=== PATIENT | female | born 1950 | race Native Hawaiian/Other Pacific Islander ===

== ENCOUNTER 2024-08-25 20:36 | Observation (INO) | payer MEDICARE ==
[2024-08-25] MEDS ORDERED: PROVENTIL 2.5 MG/3 ML NEB IH ONE (20:50)
[2024-08-25] MEDS: PROVENTIL 2.5 MG/3 ML NEB IH ONE (20:55)
[2024-08-25] MEDS ORDERED: Sterile H2O 10 ml IJ ONE (21:04)
[2024-08-25] MEDS ORDERED: solu-MEDROL ONE (21:04)
[2024-08-25] MEDS: solu-MEDROL 125 MG, Sterile H2O 10 ml 2 ML IV ONE (21:08)
[2024-08-25 21:11] LABS: Absolute Neutrophil Ct (ANC) 4.84 x10^3/uL (1.56-6.13); BASOPHIL % 0.3 % (0.1-1.2); Basophil (Absolute #) 0.02 x10^3/uL (0.01-0.08); Eosinophil % 0.3 % (0.7-5.8); Eosinophil (Absolute #) 0.02 x10^3/uL (0.04-0.36); Hematocrit 35.4 % (34.1-44.9); Hemoglobin 11.3 g/dL (11.2-15.7); IMMATURE GRAN # 0.05 x10^3u/L (0.001-0.031); IMMATURE GRAN % 0.8 % (0.001-0.429); Lymphocyte (Absolute #) 0.89 x10^3/uL (1.18-3.74); Lymphocytes % 13.9 % (19.3-51.7); Mean Corpuscular Hgb Concent. 31.9 g/dL (32.2-35.5); Mean Platelet Volume 9.7 fL (9.4-12.3); Monocyte (Absolute #) 0.58 x10^3/uL (0.24-0.86); Monocytes % 9.1 % (4.7-12.5); Neutrophil % 75.6 % (34.0-71.1); Platelet Count 182 x10^3/uL (182-369); Red Blood Count 3.89 x10^6/uL (3.93-5.22); Red Cell Distribution Width 14.5 % (11.7-14.4); White Blood Count 6.4 x10^3/uL (3.98-10.04)
[2024-08-25 21:36] LABS: ALBUMIN 4.4 g/dL (3.5-5.0); ANION GAP 18.3 MEQ/L (5-15); BILIRUBIN,TOTAL 0.4 mg/dL (0.2-1.3); Calcium 7.8 mg/dL (8.4-10.2); Creatinine 1 0.89 mg/dL (0.52-1.04); Potassium 4.1 mmol/L (3.5-5.1); Total Protein 6.3 g/dL (6.3-8.2)
[2024-08-25 21:49] LABS: INFLUENZA A NEGATIVE (NEGATIVE); INFLUENZA B NEGATIVE (NEGATIVE); RESPIRATORY SYNCTIAL VIRUS NEGATIVE (NEGATIVE); SARS-CoV-2 Xpert Express NEGATIVE (NEGATIVE)
[2024-08-25] MEDS ORDERED: ROCEPHIN 2 GM/100 ML NACL 2 GM/100 ML IVPB IV ONE (22:56)
--- NOTE | 2024-08-25 22:56 | ERPHSYRPT ---
- History of Present Illness Time Seen by Provider: 08/25/24 20:50 Source: patient Exam Limitations: no limitations Patient Subjective Stated Complaint: pt states that she has end stage COPD. pt states that she began to be short of breath on saturday and has just gotten worse Triage Nursing Assessment: pt came into the er via wheelchair; pt is axo x4; c/o SOB; pt denies pain; pt is tripod position, purse lip breathing; respiratory distress present; pt wears 3L O2 at all times; lung sounds diminished throughout and expiratory wheezing posterior; skin PDW; tachycardic Physician History: 74-year-old female history of end-stage COPD on 3 L nasal cannula daily presents to our ED for evaluation of progressive shortness of breath since Saturday. Patient has been treating herself with nebulized albuterol with transient improvement. No fever. No nausea vomiting or diaphoresis. Patient denies chest pain. Symptoms are moderate in intensity. Symptoms worse with exertion. Patient voices no other complaints or concerns at this time. Portions of this note were created with voice recognition technology. There may be grammatical, spelling, punctuation or sound alike errors Timing/Duration: today Activities at Onset: activity Severity of Dyspnea-Max: severe Severity of Dyspnea-Current: moderate Possible Cause: occasional episodes Modifying Factors: Improves With: activity Associated Symptoms: cough Allergies/Adverse Reactions: ciprofloxacin Allergy (Verified 08/25/24 20:40) codeine Allergy (Verified 08/25/24 20:40) propoxyphene [From Darvon] Allergy (Verified 08/25/24 20:40) Home Medications: ARIPiprazole [Aripiprazole] 30 mg PO DAILY 08/25/24 [History] Albuterol Sulfate [Proair Respiclick] 2 puff IH Q6HPRN PRN 08/25/24 [History] Atorvastatin Calcium 40 mg PO HS 08/25/24 [History] Bisacodyl 10 mg [Dulcolax 10 MG SUPP] 10 mg RC DAILY PRN 08/25/24 [History] Calcium Carbonate/Vitamin D3 [Calcium 600 mg-Vit D3 10Mcg Tb] 1 each PO BID 08/25/24 [History] Famotidine 40 mg PO DAILY 08/25/24 [History] Fluticasone Furoate [Arnuity Ellipta] 1 puff IH DAILY 08/25/24 [History] Fluticasone Propionate [Flonase Allergy Relief] 1 spray NS DAILY 08/25/24 [History] Ipratropium/Albuterol Sulfate [Iprat-Albut 0.5-3(2.5) mg/3 ml] 3 ml IH Q6HPRN PRN 08/25/24 [History] Levothyroxine Sodium 300 mcg PO DAILY 08/25/24 [History] Montelukast Sodium 10 mg [Singulair 10 MG] 10 mg PO DAILY 08/25/24 [History] Morphine Sulfate 15 mg PO Q4HPRN PRN 08/25/24 [History] Morphine Sulfate Cr 15 mg [Ms Contin 15 MG] 15 mg PO HS 08/25/24 [History] Morphine Sulfate Cr 15 mg [Ms Contin 15 MG] 30 mg PO 0600 08/25/24 [History] Morphine Sulfate Cr 15 mg [Ms Contin 15 MG] 30 mg PO 1400 08/25/24 [History] Naloxone HCl [Narcan] 4 mg NS DAILY PRN 08/25/24 [History] Nitroglycerin 0.4 mg Tablet [Nitrostat 0.4 MG Tablet] 0.4 mg SL Q5MIN PRN MR X 3 PRN 08/25/24 [History] Omeprazole 40 mg PO BID 08/25/24 [History] Polyethylene Glycol 3350 17 gm [Miralax Powder 17GM PACKET] 17 gm PO DAILY 08/25/24 [History] Potassium Chloride 10 meq PO DAILY 08/25/24 [History] Prednisone 10 mg [Deltasone 10 mg] 10 mg PO DAILY 08/25/24 [History] Quetiapine Fumarate 25 mg [Seroquel 25 MG] 25 mg PO HS 08/25/24 [History] Roflumilast [Daliresp] 500 mcg PO DAILY 08/25/24 [History] Tiotropium Ridge Inhaler [Spiriva 18 Mcg/Cap Inhaler] 1 puff IH DAILY 08/25/24 [History] Hx Tetanus, Diphtheria Vaccination/Date Given: Yes Hx Influenza Vaccination/Date Given: Yes Hx Pneumococcal Vaccination/Date Given: Yes Travel Risk - International Travel Have you traveled outside of the country in past 3 weeks: No - Emerging Infectious Disease Are you exhibiting symptoms associated with any current EIDs: Yes Symptoms: Shortness of Breath - Review of Systems Constitutional: No Symptoms, No Fever, No Chills Eyes: No Symptoms Ears, Nose, & Throat: No Symptoms Respiratory: No Symptoms, No Cough, No Dyspnea Cardiac: No Symptoms, No Chest Pain, No Edema, No Syncope Abdominal/Gastrointestinal: No Symptoms, No Abdominal Pain, No Nausea, No Vomiting, No Diarrhea Genitourinary Symptoms: No Symptoms, No Dysuria Musculoskeletal: No Symptoms, No Back Pain, No Neck Pain Skin: No Symptoms, No Rash Neurological: No Symptoms, No Dizziness, No Focal Weakness, No Sensory Changes Psychological: No Symptoms Endocrine: No Symptoms Hematologic/Lymphatic: No Symptoms Immunological/Allergic: No Symptoms All Other Systems: Reviewed and Negative - Past Medical History Pertinent Past Medical History: Yes ENT History: Cataracts Cardiac History: Coronary Artery Disease, High Cholesterol, Myocardial Infarction (MA) Respiratory History: COPD Endocrine Medical History: Hypothyroidism Musculoskeletal History: No Pertinent History, Other GI Medical History: Diverticulosis, GERD, Gallbladder Disease, Other History: Renal Disease Psycho-Social History: Bipolar, Depression Female Reproductive Disorders: No Pertinent History Other Medical History: saab esophagus, ckc stage 3, opioid dependence, small intestional bacterial overgrowth (SIBO), essential tremor, hypomagnesemia, gastroparesis, nodule of kidney, chronic intestinal pseudo-obstruction, chronic pain, end stage COPD - Past Surgical History Past Surgical History: Yes Neuro Surgical History: No Pertinent History Cardiac: Cardiac Catheterization Respiratory: No Pertinent History Gastrointestinal: Cholecystectomy Genitourinary: Kidney Surgery Musculoskeletal: Orthopedic Surgery Female Surgical History: Tubal Ligation Other Surgical History: carpal tunnel surgery on both wrist, left knee surgery, sinus surgery, kidney surgery-stents - Social History Smoking Status: Former smoker Exposure to second hand smoke: No Drug Use: none - Social Determinants of Health Will the patient participate in the screening: Yes Do you worry about a steady place to live?: No Do you have any problems with any of the following?: No known problems In the past 12 months,have you had to go without utilities?: No Transportation Issues: No Has anyone in your support network made you feel unsafe?: No Have you or anyone in your house had to go w/o enough food: No - Nursing Vital Signs Nursing Vital Signs: Initial Vital Signs Pulse Rate 114 H 08/25/24 20:40 Respiratory Rate 24 08/25/24 20:40 Blood Pressure 137/72 08/25/24 20:40 O2 Sat by Pulse Oximetry 97 08/25/24 20:40 Pain Scale Pain Intensity 0 - Physical Exam General Appearance: no apparent distress, alert Eye Exam: PERRL/EOMI Ears, Nose, Throat Exam: hearing grossly normal, normal ENT inspection, normal pharynx Neck Exam: normal inspection, supple Respiratory Exam: diminished breath sounds, rhonchi, wheezing Cardiovascular/Chest Exam: normal heart sounds, regular rate/rhythm Abdominal/Gastrointestinal Exam: soft, No tenderness, No distention, No mass Extremity Exam: non-tender, normal range of motion, normal inspection, no calf tenderness, no pedal edema Neurologic Exam: alert, oriented x 3, cooperative, stack supervisor II-XII nml as tested, sensation nml, No motor deficits Skin Exam: normal color, warm, No dry Lymphatic Exam: No adenopathy SpO2 Interpretation: normal SpO2: 99 O2 Delivery: Room Air - Course Nursing assessment & vital signs reviewed: Yes EKG Interpreted by Me: RATE ([id number]), Sinus Rhythm, LAFB, NORMAL INTERVALS, NORMAL QRS - Radiology Exams Chest X-ray Interpretation: Interpreted by me (No acute findings) Ordered Tests: Active Orders 24 hr Category Date Time Status Dietary Aide Teacher STAT Care 08/25/24 20:45 Active EKG-ER Only STAT Care 08/25/24 20:44 Active IV Insertion STAT Care 08/25/24 20:44 Active Pulse Oximetry (ED) STAT Care 08/25/24 20:44 Active CHEST 1 VIEW (PORTABLE) Stat Exams 08/25/24 21:35 Taken BLOOD CULTURE Stat Lab 08/25/24 21:00 Received CBC W DIFF Stat Lab 08/25/24 20:30 Completed CMP Stat Lab 08/25/24 20:30 Completed D-DIMER QUANTITATIVE Stat Lab 08/25/24 20:30 Completed NT PRO BNPII Stat Lab 08/25/24 20:30 Completed TROPONIN Q4H Lab 08/25/24 20:30 Completed TROPONIN Q4H Lab 08/26/24 00:45 Ordered TROPONIN Q4H Lab 08/26/24 04:45 Ordered Respiratory Therapy Assessment DAILY RT 08/25/24 20:57 Active Transfer Order Routine Transfer 08/25/24 Ordered Medication Summary Generic Name Dose Route Start Last Admin Trade Name Hood PRN Reason Stop Dose Admin Azithromycin 500 mg/ Sodium 250 mls @ 250 mls/hr 08/25/24 22:54 Chloride IV 08/25/24 23:53 STAT STA Ceftriaxone Sodium 2 gm in 100 mls @ 200 mls/hr 08/25/24 22:54 08/25/24 22:57 Rocephin 2 Gm/100 Ml Nacl IV 08/25/24 23:23 200 mls/hr STAT ONE 200 mls/hr Administration Discontinued Medications Generic Name Dose Route Start Last Admin Trade Name Mangoq PRN Reason Stop Dose Admin Albuterol Sulfate 2.5 mg 08/25/24 20:45 08/25/24 20:55 Albuterol Sulfate 2.5 Mg/3 Ml Neb IH 08/25/24 20:46 2.5 mg STAT ONE Administration Albuterol Sulfate Confirm 08/25/24 20:50 Albuterol Sulfate 2.5 Mg/3 Ml Neb Administered 08/25/24 20:51 Dose 2.5 mg IH .STK-MED ONE Methylprednisolone Sodium 0 mg 08/25/24 20:45 08/25/24 21:08 Succinate 125 mg/ Sterile IV 08/25/24 20:46 125 mg Water 2 ml STAT ONE Administration Ceftriaxone Sodium Confirm 08/25/24 22:56 Rocephin 2 Gm/100 Ml Nacl Administered 08/25/24 22:57 Dose 2 gm in 100 mls @ ud IV .STK-MED ONE Methylprednisolone Sodium Succinate Confirm 08/25/24 21:04 Methylprednis Sod Succ 125 Mg/2 Ml Vial Administered 08/25/24 21:05 Dose 125 mg .ROUTE .STK-MED ONE Sterile Water Confirm 08/25/24 21:04 Water For Injection,Sterile 10 Ml Vial Administered 08/25/24 21:05 Dose 10 ml IJ .STK-MED ONE Lab/Rad Data: Laboratory Result Diagrams 08/25/24 20:30 08/25/24 20:30 Laboratory Results 08/25/24 08/25/24 08/25/24 Range/Units 21:01 20:30 20:30 WBC (3.98-10.04) x10^3/uL RBC (3.93-5.22) x10^6/uL Hgb (11.2-15.7) g/dL Hct (34.1-44.9) % MCV (79.4-94.8) fL MCH (25.6-32.2) pg MCHC (32.2-35.5) g/dL RDW (11.7-14.4) % Plt Count (182-369) x10^3/uL MPV (9.4-12.3) fL Gran % (34.0-71.1) % Immature Gran % (Auto) (0.001-0.429) % Nucleat RBC Rel Count (0.00-0.2) % Eos # (Auto) (0.04-0.36) x10^3/uL Immature Gran # (Auto) (0.001-0.031) x10^3u/L Absolute Lymphs (auto) (1.18-3.74) x10^3/uL Absolute Monos (auto) (0.24-0.86) x10^3/uL Absolute Nucleated RBC (0.00-0.012) x10^3u/L Lymphocytes % (19.3-51.7) % Monocytes % (4.7-12.5) % Eosinophils % (0.7-5.8) % Basophils % (0.1-1.2) % Absolute Granulocytes (1.56-6.13) x10^3/uL Basophils # (0.01-0.08) x10^3/uL D-Dimer 0.49 (0.0-0.50) mg/L Sodium (135-145) mmol/L Potassium (3.5-5.1) mmol/L Chloride (98-107) mmol/L Carbon Dioxide (22-30) mmol/L Anion Gap (5-15) MEQ/L BUN (7-17) mg/dL Creatinine (0.52-1.04) mg/dL Estimated GFR ML/MIN Glucose (74-106) mg/dL Calcium (8.4-10.2) mg/dL Total Bilirubin (0.2-1.3) mg/dL AST (14-36) U/L ALT (0-35) U/L Alkaline Phosphatase (38-126) U/L Troponin I < 0.012 (0.000-0.033) ng/mL NT-Pro-B Natriuret Pep (<300) pg/mL Serum Total Protein (6.3-8.2) g/dL Albumin (3.5-5.0) g/dL Influenza Type A Ag NEGATIVE (NEGATIVE) Influenza Type B Ag NEGATIVE (NEGATIVE) RSV (PCR) NEGATIVE (NEGATIVE) SARS-CoV-2 (PCR) NEGATIVE (NEGATIVE) 08/25/24 08/25/24 Range/Units 20:30 20:30 WBC 6.4 (3.98-10.04) x10^3/uL RBC 3.89 L (3.93-5.22) x10^6/uL Hgb 11.3 (11.2-15.7) g/dL Hct 35.4 (34.1-44.9) % MCV 91.0 (79.4-94.8) fL MCH 29.0 (25.6-32.2) pg MCHC 31.9 L (32.2-35.5) g/dL RDW 14.5 H (11.7-14.4) % Plt Count 182 (182-369) x10^3/uL MPV 9.7 (9.4-12.3) fL Gran % 75.6 H (34.0-71.1) % Immature Gran % (Auto) 0.8 H (0.001-0.429) % Nucleat RBC Rel Count 0.0 (0.00-0.2) % Eos # (Auto) 0.02 L (0.04-0.36) x10^3/uL Immature Gran # (Auto) 0.05 H (0.001-0.031) x10^3u/L Absolute Lymphs (auto) 0.89 L (1.18-3.74) x10^3/uL Absolute Monos (auto) 0.58 (0.24-0.86) x10^3/uL Absolute Nucleated RBC 0.00 (0.00-0.012) x10^3u/L Lymphocytes % 13.9 L (19.3-51.7) % Monocytes % 9.1 (4.7-12.5) % Eosinophils % 0.3 L (0.7-5.8) % Basophils % 0.3 (0.1-1.2) % Absolute Granulocytes 4.84 (1.56-6.13) x10^3/uL Basophils # 0.02 (0.01-0.08) x10^3/uL D-Dimer (0.0-0.50) mg/L Sodium 139 (135-145) mmol/L Potassium 4.1 (3.5-5.1) mmol/L Chloride 108 H (98-107) mmol/L Carbon Dioxide 17 L (22-30) mmol/L Anion Gap 18.3 H (5-15) MEQ/L BUN 14 (7-17) mg/dL Creatinine 0.89 (0.52-1.04) mg/dL Estimated GFR 68.0 ML/MIN Glucose 117 H (74-106) mg/dL Calcium 7.8 L (8.4-10.2) mg/dL Total Bilirubin 0.40 (0.2-1.3) mg/dL AST 26 (14-36) U/L ALT 21 (0-35) U/L Alkaline Phosphatase 37 L (38-126) U/L Troponin I (0.000-0.033) ng/mL NT-Pro-B Natriuret Pep 604 (<300) pg/mL Serum Total Protein 6.3 (6.3-8.2) g/dL Albumin 4.4 (3.5-5.0) g/dL Influenza Type A Ag (NEGATIVE) Influenza Type B Ag (NEGATIVE) RSV (PCR) (NEGATIVE) SARS-CoV-2 (PCR) (NEGATIVE) - Progress Progress: improved Air Movement: good Progress Note: 74-year-old female history of COPD presents to our ED for evaluation of shortness of breath. Physical exam revealed diminished coarse breath sounds with scattered wheezes. Patient was 96% on 3 L which is her baseline. Patient requires 3 L nasal cannula at home daily. D-dimer negative. Patient received Solu-Medrol and DuoNeb. Symptoms improved. Patient reassessed. Patient feels better however is not ready for discharge. Case discussed with hospitalist Dr. Nelson who accepts admission to observation at 11 PM. Plan of care discussed with patient. She agrees to admission at [facility] for further evaluation and treatment. Portions of this note were created with voice recognition technology. There may be grammatical, spelling, punctuation or sound alike errors Complexity of problem addressed is moderate acute complicated. No critical care time. Complexity of data reviewed and analyzed is extensive. Test ordered chest reviewed results analyzed and correlated clinically with history and physical exam. Management discussed with hospitalist who accepts admission to observation. Risk of complication and or risk of morbidity/mortality of patient management is high. Patient requires hospitalization for further evaluation and treatment. Vital stable. Time spent admit patient is approximately 15 minutes. Plan of care established for shared decision making. No social determinants of health present to impede follow-up. Portions of this note were created with voice recognition technology. There may be grammatical, spelling, punctuation or sound alike errors 08/25/24 23:00 Blood Culture(s) Obtained: Yes Antibiotics given: Yes Counseled pt/family regarding: lab results, diagnosis, rad results - Departure Departure Disposition: Observation Clinical Impression: COPD exacerbation, Shortness of breath Condition: Stable Critical Care Time: No Referrals: JEFFERY GÓMEZ [Primary Care Provider, PULMONARY MEDICINE] - Follow up/PCP as directed Instructions: Chronic Obstructive Pulmonary Disease
[2024-08-25] MEDS: ROCEPHIN 2 GM/100 ML NACL 2 GM/100 ML IVPB IV ONE (22:57)
[2024-08-26] MEDS ORDERED: MORPHINE SULFATE 15 MG PO PRN (00:06)
[2024-08-26] MEDS ORDERED: Nitrostat 0.4 MG Tablet SL PRN (00:06)
[2024-08-26] MEDS ORDERED: Dulcolax 10 MG SUPP RC PRN (00:06)
[2024-08-26] MEDS ORDERED: NON-FORMULARY ITEM (Naloxone Hcl [Narcan] 4 MG Spray) NS PRN (00:06)
[2024-08-26] MEDS ORDERED: Zofran 4 MG/2 ML VIAL IV PRN (00:08)
[2024-08-26] MEDS ORDERED: DUONEB 0.5-3 MG/3 ml Neb IH PRN (00:08)
[2024-08-26] MEDS ORDERED: PROTONIX 40 MG IV IV SCH (00:15)
--- NOTE | 2024-08-26 00:19 | PCM.HP ---
History of Present Illness - Chief Complaint Chief Complaint: COPD exacerbation Date: 08/26/24 History of Present Illness: 74 years old very pleasant lady with past medical history significant for COPD on 3 L oxygen at home, hypothyroidism ,anxiety, bipolar, chronic pain syndrome,GERD, hyperlipidemia came to ER complaining of shortness of breath for last 2 days with some cough and congestion. She denied having any fever. She tried to use her nebulizer but it did not help her much and she decided come to the ER. In the ER vital signs were pretty stable so does the lab workup. Chest x-ray remained completely unremarkable. Patient was not hypoxemic. She was s aturating 96% liter oxygen. She admitted for COPD exacerbation - Review of Systems All Other Systems: Reviewed and Negative (14 systems reviewed and marked ve except mentioned in [facility]) Medications & Allergies Home Medications: Home Medication List ARIPiprazole [Aripiprazole] 30 mg PO DAILY 08/25/24 [History Confirmed 08/25/24] Albuterol Sulfate [Proair Respiclick] 2 puff IH Q6HPRN PRN 08/25/24 [History Confirmed 08/25/24] Atorvastatin Calcium 40 mg PO HS 08/25/24 [History Confirmed 08/25/24] Bisacodyl 10 mg [Dulcolax 10 MG SUPP] 10 mg RC DAILY PRN 08/25/24 [History Confirmed 08/25/24] Calcium Carbonate/Vitamin D3 [Calcium 600 mg-Vit D3 10Mcg Tb] 1 each PO BID 08/25/24 [History Confirmed 08/25/24] Famotidine 40 mg PO DAILY 08/25/24 [History Confirmed 08/25/24] Fluticasone Furoate [Arnuity Ellipta] 1 puff IH DAILY 08/25/24 [History Confirmed 08/25/24] Fluticasone Propionate [Flonase Allergy Relief] 1 spray NS DAILY 08/25/24 [History Confirmed 08/25/24] Ipratropium/Albuterol Sulfate [Iprat-Albut 0.5-3(2.5) mg/3 ml] 3 ml IH Q6HPRN PRN 08/25/24 [History Confirmed 08/25/24] Levothyroxine Sodium 300 mcg PO DAILY 08/25/24 [History Confirmed 08/25/24] Montelukast Sodium 10 mg [Singulair 10 MG] 10 mg PO DAILY 08/25/24 [History Confirmed 08/25/24] Morphine Sulfate 15 mg PO Q4HPRN PRN 08/25/24 [History Confirmed 08/25/24] Morphine Sulfate Cr 15 mg [Ms Contin 15 MG] 15 mg PO HS 08/25/24 [History Confirmed 08/25/24] Morphine Sulfate Cr 15 mg [Ms Contin 15 MG] 30 mg PO 0600 08/25/24 [ History Confirmed 08/25/24] Morphine Sulfate Cr 15 mg [Ms Contin 15 MG] 30 mg PO 1400 08/25/24 [History Confirmed 08/25/24] Naloxone HCl [Narcan] 4 mg NS DAILY PRN 08/25/24 [History Confirmed 08/25/24] Nitroglycerin 0.4 mg Tablet [Nitrostat 0.4 MG Tablet] 0.4 mg SL Q5MIN PRN MR X 3 PRN 08/25/24 [History Confirmed 08/25/24] Omeprazole 40 mg PO BID 08/25/24 [History Confirmed 08/25/24] Polyethylene Glycol 3350 17 gm [Miralax Powder 17GM PACKET] 17 gm PO DAILY 08/25/24 [History Confirmed 08/25/24] Potassium Chloride 10 meq PO DAILY 08/25/24 [History Confirmed 08/25/24] Prednisone 10 mg [Deltasone 10 mg] 10 mg PO DAILY 08/25/24 [History Confirmed 08/25/24] Quetiapine Fumarate 25 mg [Seroquel 25 MG] 25 mg PO HS 08/25/24 [History Confirmed 08/25/24] Roflumilast [Daliresp] 500 mcg PO DAILY 08/25/24 [History Confirmed 08/25/24] Tiotropium [place] Inhaler [Spiriva 18 Mcg/Cap Inhaler] 1 puff IH DAILY 08/25/24 [History Confirmed 08/25/24] Allergies/Adverse Reactions: Allergies Allergy/AdvReac Type Severity Reaction Status Date / Time ciprofloxacin Allergy Verified 08/25/24 20:40 codeine Allergy Verified 08/25/24 20:40 propoxyphene [From Darvon] Allergy Verified 08/25/24 20:40 - Past Medical History Past Medical History: Yes ENT History: Cataracts Cardiac History: Coronary Artery Disease, High Cholesterol, Myocardial Infarction ([place]) Respiratory History: COPD Endocrine Medical History: Hypothyroidism Musculoskelatal History: No Pertinent History, Other GI Medical History: Diverticulosis, GERD, Gallbladder Disease, Other History: Renal Disease Pyscho-Social History: Bipolar, Depression Reproductive Disorders: No Pertinent History Comment: saab esophagus, ckc stage 3, opioid dependence, small intestional bacterial overgrowth (SIBO), essential tremor, hypomagnesemia, gastroparesis, nodule of kidney, chronic intestinal pseudo-obstruction, chronic pain, end stage COPD - Past Surgical History Past Surgical History: Yes Neuro Surgical History: No Pertinent History Cardiac History: Cardiac Catheterization Respiratory Surgery: No Pertinent History GI Surgical History: Cholecystectomy Genitourinary Surgical Hx: Kidney Surgery Musculskeletal Surgical Hx: Orthopedic Surgery Female Surgical History: Tubal Ligation Other Surgical History: carpal tunnel surgery on both wrist, left knee surgery, sinus surgery, kidney surgery-stents Significant Family History: no pertinent family hx (No family history pertaining to this admission reported.) - Social History Smoking Status: Former smoker Exposure to second hand smoke: No Alcohol: None Drug Use: none - Social Determinants of Health Will the patient participate in the screening: Yes Do you worry about a steady place to live?: No Do you have any problems with any of the following?: No known problems In the past 12 months,have you had to go without utilities?: No Have you or anyone in your house had to go without enough: No Transportation Issues: No Has anyone in your support network made you feel unsafe?: No - Physical Exam Vital Signs: Vital Signs - 24 hr Temp Pulse Resp BP BP Pulse Ox 08/25/24 23:15 73 16 124/49 100 08/25/24 23:09 99 08/25/24 22:30 72 16 119/57 100 08/25/24 22:00 80 18 126/61 99 08/25/24 21:30 89 16 130/65 100 08/25/24 21:13 98.4 F 114 H 16 137/72 97 08/25/24 21:00 84 16 128/70 100 08/25/24 20:55 86 16 100 08/25/24 20:44 100 08/25/24 20:40 114 H 24 137/72 97 Additional Findings: 08/26/24 00:18 HEENT Old aged, average built in no distress NECK Supple,no thyromegaly, CVS S1+S2 + 0, no murmers RESP Bilateral decreased breath sounds with Wheezes heard GIT Soft non tender,non distended Skin, No rah, no Bruises LEGS No Edema PSYCH Normal,mood, judgement and insight NEURO AOX3, no focal deficit Results - Labs Lab/Micro Results: Lab Results-Last 24 Hours 08/25/24 08/25/24 08/25/24 Range/Units 20:30 20:30 20:30 WBC 6.4 (3.98-10.04) x10^3/uL RBC 3.89 L (3.93-5.22) x10^6/uL Hgb 11.3 (11.2-15.7) g/dL Hct 35.4 (34.1-44.9) % MCV 91.0 (79.4-94.8) fL MCH 29.0 (25.6-32.2) pg MCHC 31.9 L (32.2-35.5) g/dL RDW 14.5 H (11.7-14.4) % Plt Count 182 (182-369) x10^3/uL MPV 9.7 (9.4-12.3) fL Gran % 75.6 H (34.0-71.1) % Immature Gran % (Auto) 0.8 H (0.001-0.429) % Nucleat RBC Rel Count 0.0 (0.00-0.2) % Eos # (Auto) 0.02 L (0.04-0.36) x10^3/uL Immature Gran # (Auto) 0.05 H (0.001-0.031) x10^3u/L Absolute Lymphs (auto) 0.89 L (1.18-3.74) x10^3/uL Absolute Monos (auto) 0.58 (0.24-0.86) x10^3/uL Absolute Nucleated RBC 0.00 (0.00-0.012) x10^3u/L Lymphocytes % 13.9 L (19.3-51.7) % Monocytes % 9.1 (4.7-12.5) % Eosinophils % 0.3 L (0.7-5.8) % Basophils % 0.3 (0.1-1.2) % Absolute Granulocytes 4.84 (1.56-6.13) x10^3/uL Basophils # 0.02 (0.01-0.08) x10^3/uL D-Dimer 0.49 (0.0-0.50) mg/L Sodium 139 (135-145) mmol/L Potassium 4.1 (3.5-5.1) mmol/L Chloride 108 H (98-107) mmol/L Carbon Dioxide 17 L (22-30) mmol/L Anion Gap 18.3 H (5-15) MEQ/L BUN 14 (7-17) mg/dL Creatinine 0.89 (0.52-1.04) mg/dL Estimated GFR 68.0 ML/MIN Glucose 117 H (74-106) mg/dL Calcium 7.8 L (8.4-10.2) mg/dL Total Bilirubin 0.40 (0.2-1.3) mg/dL AST 26 (14-36) U/L ALT 21 (0-35) U/L Alkaline Phosphatase 37 L (38-126) U/L Troponin I (0.000-0.033) ng/mL NT-Pro-B Natriuret Pep 604 (<300) pg/mL Serum Total Protein 6.3 (6.3-8.2) g/dL Albumin 4.4 (3.5-5.0) g/dL Influenza Type A Ag (NEGATIVE) Influenza Type B Ag (NEGATIVE) RSV (PCR) (NEGATIVE) SARS-CoV-2 (PCR) (NEGATIVE) 08/25/24 08/25/24 Range/Units 20:30 21:01 WBC (3.98-10.04) x10^3/uL RBC (3.93-5.22) x10^6/uL Hgb (11.2-15.7) g/dL Hct (34.1-44.9) % MCV (79.4-94.8) fL MCH (25.6-32.2) pg MCHC (32.2-35.5) g/dL RDW (11.7-14.4) % Plt Count (182-369) x10^3/uL MPV (9.4-12.3) fL Gran % (34.0-71.1) % Immature Gran % (Auto) (0.001-0.429) % Nucleat RBC Rel Count (0.00-0.2) % Eos # (Auto) (0.04-0.36) x10^3/uL Immature Gran # (Auto) (0.001-0.031) x10^3u/L Absolute Lymphs (auto) (1.18-3.74) x10^3/uL Absolute Monos (auto) (0.24-0.86) x10^3/uL Absolute Nucleated RBC (0.00-0.012) x10^3u/L Lymphocytes % (19.3-51.7) % Monocytes % (4.7-12.5) % Eosinophils % (0.7-5.8) % Basophils % (0.1-1.2) % Absolute Granulocytes (1.56-6.13) x10^3/uL Basophils # (0.01-0.08) x10^3/uL D-Dimer (0.0-0.50) mg/L Sodium (135-145) mmol/L Potassium (3.5-5.1) mmol/L Chloride (98-107) mmol/L Carbon Dioxide (22-30) mmol/L Anion Gap (5-15) MEQ/L BUN (7-17) mg/dL Creatinine (0.52-1.04) mg/dL Estimated GFR ML/MIN Glucose (74-106) mg/dL Calcium (8.4-10.2) mg/dL Total Bilirubin (0.2-1.3) mg/dL AST (14-36) U/L ALT (0-35) U/L Alkaline Phosphatase (38-126) U/L Troponin I < 0.012 (0.000-0.033) ng/mL NT-Pro-B Natriuret Pep (<300) pg/mL Serum Total Protein (6.3-8.2) g/dL Albumin (3.5-5.0) g/dL Influenza Type A Ag NEGATIVE (NEGATIVE) Influenza Type B Ag NEGATIVE (NEGATIVE) RSV (PCR) NEGATIVE (NEGATIVE) SARS-CoV-2 (PCR) NEGATIVE (NEGATIVE) - Radiology Impressions Radiology Exams & Impressions: Radiology Procedures Category Date Time Status CHEST 1 VIEW (PORTABLE) Stat Exams 08/25/24 21:35 Taken Assessment/Plan (1) COPD exacerbation Current Visit: Yes Status: Acute Code(s): J44.1 - CHRONIC OBSTRUCTIVE PULMONARY DISEASE W (ACUTE) EXACERBATION (2) Hypothyroidism Current Visit: Yes Status: Acute Code(s): E03.9 - HYPOTHYROIDISM, UNSPECIFIED (3) Chronic GERD Current Visit: Yes Status: Acute Code(s): K21.9 - GASTRO-ESOPHAGEAL REFLUX DISEASE WITHOUT ESOPHAGITIS Telemedicine Encounter - Telemedicine Encounter Telemedicine Encounter: The entirety of this encounter was performed via TelemedicineThis visit was performed using real-time audio and video connection between my location and thepatients locationwith the assistance of a surrogateat the patients location. Written or verbal consent was obtained from the patient/guardian to perform this visit usingSensopia technology. Any patient questions regarding the telemedicine interaction were answered. Acute COPD exacerbation X-ray remained unremarkable for any consolidation Continue breathing therapy every 3 hours pending Continue Pulmicort twice daily Continue Solu-Medrol 40 mg IV every 8 hours Will add ceftriaxone and azithromycin Chronic hypoxic respiratory failure Patient is on 3 L oxygen Chronic Pain syndrome Resumed home morphine IR and Oxycontin Hypothyroidism Resume home levothyroxine Hyperlipidemia Continue home statins Anxiety/bipolar disorder Continue home Abilify/Seroquel GERD continue pantoprazole DVT prophylaxis SCD/Lovenox GI prophylaxis Protonix CODE STATUS full Discharge planning hopefully will be able to go home in next 24 to 48 hours. I have reviewed patient levels and imaging in detail question and concern were addressed
[2024-08-26] MEDS: DUONEB 0.5-3 MG/3 ml Neb IH SCH (00:56)
[2024-08-26 05:08] LABS: Hematocrit 32.9 % (34.1-44.9); Hemoglobin 10.4 g/dL (11.2-15.7); Mean Cell Volume 91.4 fL (79.4-94.8); Mean Corpuscular Hemoglobin 28.9 pg (25.6-32.2); Mean Corpuscular Hgb Concent. 31.6 g/dL (32.2-35.5); Mean Platelet Volume 10.1 fL (9.4-12.3); Platelet Count 134 x10^3/uL (182-369); Red Cell Distribution Width 14.2 % (11.7-14.4); White Blood Count 3.9 x10^3/uL (3.98-10.04)
[2024-08-26 05:27] LABS: ANION GAP 19.1 MEQ/L (5-15); Calcium 7.6 mg/dL (8.4-10.2); Creatinine 1 0.92 mg/dL (0.52-1.04); EST GLOMERULAR FILTRATION RATE 65.3 ML/MIN; Potassium 3.9 mmol/L (3.5-5.1)
[2024-08-26] MEDS ORDERED: Sterile H2O 10 ml IJ ONE (06:30)
[2024-08-26] MEDS: Ms Contin 15 MG PO SCH ×3 (06:35→22:30)
[2024-08-26] MEDS: solu-MEDROL IV SCH (06:36)
[2024-08-26] MEDS ORDERED: DUONEB 0.5-3 MG/3 ml Neb IH ONE (07:14)
[2024-08-26] MEDS: ZITHROMAX IV*** 500 MG in Sodium Chloride 0.9% 250 ML 250 ML IV STA (07:24)
[2024-08-26] MEDS: PULMICORT 0.5 MG/2 ML RESPULES IH SCH (07:52)
[2024-08-26] MEDS ORDERED: MEDICATION INTERVENTION MC SCH (08:00)
[2024-08-26] MEDS ORDERED: Narcan 0.4 MG/ML IV PRN (08:15)
--- NOTE | 2024-08-26 08:46 | XRAY ---
Indication: Short of breath. Comparison: None Portable chest hyperinflated with left midlung subsegmental atelectasis/scarring and left mid to lower lung bullae. No infiltrate, consolidation, or large effusion. Heart not enlarged. Bony thorax intact with osteopenia, mild degenerative changes, and mild dextroscoliosis. Impression: Nonacute chest with chronic features.
[2024-08-26] MEDS: Sodium Chloride 0.9% 1000 ML 1,000 ML IV SCH (09:22)
[2024-08-26] MEDS: Protonix 40MG Tablet PO SCH ×2 (09:26→22:31)
[2024-08-26] MEDS: Singulair 10 MG PO SCH (09:26)
[2024-08-26] MEDS: Abilify 10 MG PO SCH (09:26)
[2024-08-26] MEDS: Calcium 500MG W/Vit D Tablet PO SCH (09:26)
[2024-08-26] MEDS: SYNTHROID 100 MCG PO SCH (09:26)
[2024-08-26] MEDS: ENOXAPARIN SODIUM SQ SCH (09:27)
[2024-08-26] MEDS: DALIRESP PO SCH (09:27)
[2024-08-26] MEDS: Miralax Powder 17GM PACKET PO SCH (09:28)
[2024-08-26] MEDS ORDERED: Miralax Powder 17GM PACKET PO PRN (09:44)
[2024-08-26] MEDS ORDERED: ARIPIPRAZOLE 30 MG PO SCH (10:00)
[2024-08-26] MEDS ORDERED: CHOLECALCIFEROL PO SCH (10:00)
[2024-08-26] MEDS ORDERED: Spiriva 18 Mcg/Cap Inhaler IH SCH (10:00)
[2024-08-26] MEDS ORDERED: FLUTICASONE FUROATE 200 MCG IH SCH (10:00)
[2024-08-26] MEDS ORDERED: CALCIUM CARBONATE PO SCH (10:00)
[2024-08-26] MEDS ORDERED: LEVOTHYROXINE SODIUM 150 MCG PO SCH (10:00)
[2024-08-26] MEDS ORDERED: [UNRECOGNIZED DRUG - OTHER] PO SCH (10:00)
[2024-08-26] MEDS: solu-MEDROL 40 MG, Sterile H2O 10 ml 1 ML IV SCH (13:36)
[2024-08-26] MEDS ORDERED: NON-FORMULARY ITEM (Albuterol Sulfate [Proair Respiclick] 90 MCG Aer.Pow.Ba) IH PRN (14:47)
[2024-08-26] MEDS ORDERED: VENTOLIN COMMON CANISTER IH PRN (15:31)
[2024-08-26] MEDS ORDERED: LIPITOR 40MG PO SCH (22:00)
[2024-08-26] MEDS ORDERED: NON-FORMULARY ITEM (Omeprazole [Omeprazole] 40 MG Capsule.Dr) PO SCH (22:00)
[2024-08-26] MEDS: ROCEPHIN 1 GM / 100 ML NaCl 1 GM/100 ML IVPB IV SCH (22:29)
[2024-08-26] MEDS: Seroquel 25 MG PO SCH (22:30)
[2024-08-26] MEDS: ZOCOR 20MG PO SCH (22:30)
[2024-08-27 04:47] LABS: Hemoglobin 11.1 g/dL (11.2-15.7); Mean Cell Volume 92.3 fL (79.4-94.8); Mean Corpuscular Hemoglobin 29.3 pg (25.6-32.2); Mean Corpuscular Hgb Concent. 31.7 g/dL (32.2-35.5); Mean Platelet Volume 10.1 fL (9.4-12.3); Platelet Count 170 x10^3/uL (182-369); Red Blood Count 3.79 x10^6/uL (3.93-5.22); Red Cell Distribution Width 14.5 % (11.7-14.4); White Blood Count 8.2 x10^3/uL (3.98-10.04)
[2024-08-27 05:29] LABS: ALBUMIN 3.6 g/dL (3.5-5.0); ANION GAP 15.4 MEQ/L (5-15); BILIRUBIN,TOTAL 0.1 mg/dL (0.2-1.3); Calcium 7.5 mg/dL (8.4-10.2); Creatinine 1 0.99 mg/dL (0.52-1.04); EST GLOMERULAR FILTRATION RATE 59.8 ML/MIN; Potassium 3.7 mmol/L (3.5-5.1); Total Protein 5.7 g/dL (6.3-8.2)
[2024-08-27] MEDS ORDERED: MEDICATION INTERVENTION MC SCH (08:00)
[2024-08-27 08:05] VITALS: BP 141/64; PULSE 89; RESP 25; TEMP 98.2; O2SAT 96
--- NOTE | 2024-08-27 09:47 | PCM.DS ---
Discharge Summary Date of Admission: 08/25/24 23:30 Date of Discharge: 08/27/24 Admitting Physician: LEXI DONOVAN MD Primary Care Provider: JEFFERY GÓMEZ Allergies Allergies ciprofloxacin Allergy (Verified 08/25/24 20:40) codeine Allergy (Verified 08/25/24 20:40) propoxyphene [From Darvon] Allergy (Verified 08/25/24 20:40) Hospital Summary - Hospital Course Hospital Course: This is a 74-year-old pleasant female with a history of COPD on 3L home oxygen, hypothyroidism, anxiety, bipolar disorder, chronic pain syndrome, GERD, and hyperlipidemia who presented to the emergency department with a two-day history of shortness of breath accompanied by cough and congestion. She denied fever and reported minimal relief from her home nebulizer treatments, prompting her to seek evaluation. In the emergency department, her vital signs were stable, laboratory results were unremarkable, and her chest X-ray showed no acute findings. She was not hypoxemic and was saturating at 96% on 1L of oxygen. She was admitted for management of a COPD exacerbation. On hospital day 2 (08/27), the patient reported feeling much better, with resolution of wheezing. She is now back on her baseline oxygen of 3L via nasal cannula and is maintaining oxygen saturations at 99%. She denies any current needs for home assistance. The plan is to discharge her with a course of antibiotics and steroids, with outpatient follow-up arranged through her primary care provider. - Vitals & Intake/Output Vital Signs: Vital Signs Temperature 98.2 F 08/27/24 08:00 Pulse Rate 89 08/27/24 08:00 Respiratory Rate 25 H 08/27/24 08:00 Blood Pressure 141/64 08/27/24 08:00 O2 Sat by Pulse Oximetry 96 08/27/24 08:00 Intake & Output: Intake & Output 08/24/24 08/25/24 08/26/24 08/27/24 11:59 11:59 11:59 11:59 Intake Total 920 3533 Output Total 300 Balance 920 3233 Weight 63.8 kg - Lab Result Diagrams: 08/27/24 04:40 08/27/24 04:40 Lab Results-Last 24 Hrs: Lab Results-Last 24 Hours 08/27/24 08/27/24 Range/Units 04:40 04:40 WBC 8.2 (3.98-10.04) x10^3/uL RBC 3.79 L (3.93-5.22) x10^6/uL Hgb 11.1 L (11.2-15.7) g/dL Hct 35.0 (34.1-44.9) % MCV 92.3 (79.4-94.8) fL MCH 29.3 (25.6-32.2) pg MCHC 31.7 L (32.2-35.5) g/dL RDW 14.5 H (11.7-14.4) % Plt Count 170 L (182-369) x10^3/uL MPV 10.1 (9.4-12.3) fL Sodium 142 (135-145) mmol/L Potassium 3.7 (3.5-5.1) mmol/L Chloride 111 H (98-107) mmol/L Carbon Dioxide 19 L (22-30) mmol/L Anion Gap 15.4 H (5-15) MEQ/L BUN 19 H (7-17) mg/dL Creatinine 0.99 (0.52-1.04) mg/dL Estimated GFR 59.8 ML/MIN Glucose 144 H (74-106) mg/dL Calcium 7.5 L (8.4-10.2) mg/dL Total Bilirubin 0.10 L (0.2-1.3) mg/dL AST 19 (14-36) U/L ALT 19 (0-35) U/L Alkaline Phosphatase 49 (38-126) U/L Serum Total Protein 5.7 L (6.3-8.2) g/dL Albumin 3.6 (3.5-5.0) g/dL Micro Results-Entire Visit: Microbiology 08/25/24 21:00 Blood Culture - Preliminary Blood 08/25/24 20:53 Blood Culture - Preliminary Blood - Radiology Exams Ordered Rad Exams-Entire Visit: Radiology Procedures Category Date Time Status CHEST 1 VIEW (PORTABLE) Stat Exams 08/25/24 21:35 Completed - Procedures and Test Procedures and Tests throughout Hospitalization: Therapy Orders & Screens 08/25/24 20:57 Respiratory Therapy Assessment DAILY Comment: 08/26/24 00:53 Oxygen Nasal Cannula 3 lpm Comment: Diagnosis: COPD exacerbation 08/26/24 01:23 RT Screen per Nursing Assess ONCE Comment: Protocol Order Physician Instructions: Greater than 3 points order RT Admission Screen Reason For Exam: Triggered on Admission Diagnosis: COPD exacerbation Diagnosis: COPD exacerbation Pneumonia: No Home O2: Yes Asthma: No CHF: No Home CPAP/BIPAP: No Home Nebs/MDI: Yes Total Points: 10 Discharge Exam General Appearance: no apparent distress, alert Neurologic Exam: alert, oriented x 3, cooperative, normal mood/affect, nml cerebellar function, sensation nml, No motor deficits Eye Exam: PERRL, EOMI, eyes nml inspection Ears, Nose, Throat Exam: normal ENT inspection, pharynx normal, moist mucous membranes Neck Exam: normal inspection, non-tender, supple, full range of motion Respiratory Exam: normal breath sounds, lungs clear, No respiratory distress Cardiovascular Exam: regular rate/rhythm, normal heart sounds Gastrointestinal/Abdomen Exam: soft, No tenderness, No mass Pelvic Exam: deferred Rectal Exam: deferred Back Exam: normal inspection, normal range of motion, No CVA tenderness, No vertebral tenderness Extremity Exam: normal inspection, normal range of motion Skin Exam: normal color, warm, dry Final Diagnosis/Problem List - Final Discharge Diagnosis/Problem (1) COPD exacerbation Current Visit: Yes Status: Acute Assessment & Plan: -X-ray remained unremarkable for any consolidation -Continue breathing therapy every 3 hours PRN -Continue Pulmicort twice daily -Continue Solu-Medrol 40 mg IV every 8 hours - ceftriaxone and azithromycin - On baseline O2 3lnc 99% Code(s): J44.1 - CHRONIC OBSTRUCTIVE PULMONARY DISEASE W (ACUTE) EXACERBATION (2) Bipolar 1 disorder Current Visit: Yes Status: Chronic Assessment & Plan: - Continue Seroquel Code(s): F31.9 - BIPOLAR DISORDER, UNSPECIFIED (3) Hyperlipidemia Current Visit: Yes Status: Chronic Assessment & Plan: - Continue Statin Code(s): E78.5 - HYPERLIPIDEMIA, UNSPECIFIED (4) Chronic GERD Current Visit: Yes Status: Chronic Assessment & Plan: - Continue omeprazole Code(s): K21.9 - GASTRO-ESOPHAGEAL REFLUX DISEASE WITHOUT ESOPHAGITIS (5) Hypothyroidism Current Visit: Yes Status: Chronic Assessment & Plan: - Continue synthroid Code(s): E03.9 - HYPOTHYROIDISM, UNSPECIFIED (6) Anxiety Current Visit: Yes Status: Chronic Assessment & Plan: - Continue home meds Code(s): F41.9 - ANXIETY DISORDER, UNSPECIFIED (7) Hypocalcemia Current Visit: Yes Status: Chronic Assessment & Plan: - Continue Caltrate D - Vitamin D lab ordered - F/U OP with PCP Code(s): E83.51 - HYPOCALCEMIA - Discharge Discharge Date: 08/27/24 Disposition: Home, Self-Care Condition: Stable Prescriptions: Continue Tiotropium [place] Inhaler [Spiriva 18 Mcg/Cap Inhaler] 1 puff IH DAILY Roflumilast [Daliresp] 500 mcg PO DAILY Quetiapine Fumarate 25 mg [Seroquel 25 MG] 25 mg PO HS Prednisone 10 mg [Deltasone 10 mg] 10 mg PO DAILY Potassium Chloride 30 meq PO DAILY Polyethylene Glycol 3350 17 gm [Miralax Powder 17GM PACKET] 17 gm PO DAILY PRN PRN Reason: Constipation Omeprazole 40 mg PO BID Nitroglycerin 0.4 mg Tablet [Nitrostat 0.4 MG Tablet] 0.4 mg SL Q5MIN PRN MR X 3 PRN PRN Reason: Chest Pain Naloxone HCl [Narcan] 4 mg NS DAILY PRN PRN Reason: Overdose Morphine Sulfate 15 mg PO Q4HPRN PRN PRN Reason: Shortness Of Breath Morphine Sulfate Cr 15 mg [Ms Contin 15 MG] 15 mg PO HS Morphine Sulfate Cr 15 mg [Ms Contin 15 MG] 30 mg PO 1400 Morphine Sulfate Cr 15 mg [Ms Contin 15 MG] 30 mg PO 0600 Montelukast Sodium 10 mg [Singulair 10 MG] 10 mg PO DAILY Levothyroxine Sodium 300 mcg PO DAILY Ipratropium/Albuterol Sulfate [Iprat-Albut 0.5-3(2.5) mg/3 ml] 3 ml IH Q6HPRN PRN PRN Reason: Shortness Of Breath Fluticasone Furoate [Arnuity Ellipta] 1 puff IH DAILY Fluticasone Propionate [Flonase Allergy Relief] 1 spray NS DAILY Famotidine 40 mg PO DAILY Calcium Carbonate/Vitamin D3 [Calcium 600 mg-Vit D3 10Mcg Tb] 1 each PO BID Bisacodyl 10 mg [Dulcolax 10 MG SUPP] 10 mg RC DAILY PRN PRN Reason: Constipation Atorvastatin Calcium 40 mg PO HS ARIPiprazole [Aripiprazole] 30 mg PO DAILY Albuterol Sulfate [Proair Respiclick] 2 puff IH Q6HPRN PRN PRN Reason: wheezing Follow up with: JEFFERY GÓMEZ [Primary Care Provider, PULMONARY MEDICINE]
[2024-08-27] MEDS ORDERED: Flonase NASAL NS SCH (10:00)
[2024-08-27] MEDS ORDERED: Klor Con PO SCH (10:00)
[2024-08-27] MEDS ORDERED: NON-FORMULARY ITEM (Fluticasone Propionate [Flonase Allergy Relief] 9.9 ML Spray.Susp) NS SCH (10:00)
[2024-08-27] MEDS ORDERED: NON-FORMULARY ITEM (Famotidine [Famotidine] 40 MG Tablet) PO SCH (10:00)
[2024-08-27] MEDS ORDERED: ZITHROMAX IV*** 500 MG in Sodium Chloride 0.9% 250 ML 250 ML IV SCH (10:00)
[2024-08-27] MEDS ORDERED: Pepcid 20 MG PO SCH (10:00)
== END 2024-08-27 10:30 | disposition home or self-care (01) ==
LOC: ED 20:36 → MED SURG 23:30
PROVIDERS: ADMIT Internal Medicine; ATTEND Internal Medicine
DX: J44.1 Chronic obstructive pulmonary disease with (acute) exacerbation (principal); F31.9 Bipolar disorder, unspecified; E78.5 Hyperlipidemia, unspecified; K21.9 Gastro-esophageal reflux disease without esophagitis; E03.9 Hypothyroidism, unspecified; F41.9 Anxiety disorder, unspecified; E83.51 Hypocalcemia; I25.10 Atherosclerotic heart disease of native coronary artery without angina pectoris; I25.2 Old myocardial infarction; N18.30 Chronic kidney disease, stage 3 unspecified; J96.01 Acute respiratory failure with hypoxia; Z79.899 Other long term (current) drug therapy; Z99.81 Dependence on supplemental oxygen
CPT/HCPCS: 0241U; 36415; 71045; 80048; 80053; 82306; 83880; 84484; 85025; 85027; 85379; 87040; 93005; 93041; 93268; 94640; 94760; 96374; 99285; G0378; Q3014; J0456; J0696; J1650; J2919; J7609; A9270-GY

== ENCOUNTER 2025-03-31 21:45 | Emergency (ER) | payer MEDICARE, BC ==
[2025-03-31 21:49] VITALS: TEMP 97
--- NOTE | 2025-03-31 22:26 | ERPHSYRPT ---
- History of Present Illness Time Seen by Provider: 03/31/25 22:22 Source: patient Exam Limitations: no limitations Patient Subjective Stated Complaint: PT STATES HER LEGS ARE SWELLING Triage Nursing Assessment: PT ARRIVES TO THE ED VIA EMS. PT IS ABLE TO WALK HERSELF FROM STRETCHER TO ER COT WITHOUT ANY DIFFICULTY OR ASSISTIVE DEVICES. PT IS ALERT AND ORIENTED X4, SOB WITH EXERTION, PULSES EQUAL BILATERALLY. PT STATES THAT TODAY HER BILATERAL LOWER EXTREMITIES STARTED TO SWELL. PT STATES THAT HER LEGS CONTINUED TO SWELL EVEN AFTER ELEVATION SO SHE DECIDED TO COME AND GET CHECKED OUT. PT DENIES EVER BEING DIAGNOSED WITH CHF. PT DOES HAVE BILATERAL LOWER EXTREMITY EDEMA THAT IS TENDER WITH PALPATION. RLE IS +1 PITTING EDEMA AND LLE IS +2 PITTING EDEMA. Physician History: Patient is a 75-year-old female history of hyperlipidemia coronary artery disease CA, COPD, hypothyroidism, renal disease, bipolar, depression presents to our ED via EMS for evaluation of bilateral lower extremity swelling. No history of CHF. No chest pain no shortness of breath. No diaphoresis. patient otherwise feels well. She voices no other complaints or concerns at this time. Portions of this note were created with voice recognition technology. There may be grammatical, spelling, punctuation or sound alike errors Timing/Duration: today Severity: moderate Modifying Factors: Improves With: nothing Associated Symptoms: denies symptoms Allergies/Adverse Reactions: ciprofloxacin Allergy (Verified 03/31/25 21:47) codeine Allergy (Verified 03/31/25 21:47) propoxyphene [From Darvon] Allergy (Verified 03/31/25 21:47) Home Medications: ARIPiprazole [Aripiprazole] 30 mg PO DAILY 08/25/24 [History] Albuterol Sulfate [Proair Respiclick] 2 puff IH Q6HPRN PRN 08/25/24 [History] Atorvastatin Calcium 40 mg PO HS 08/25/24 [History] Bisacodyl 10 mg [Dulcolax 10 MG SUPP] 10 mg RC DAILY PRN 08/25/24 [History] Calcium Carbonate/Vitamin D3 [Calcium 600 mg-Vit D3 10Mcg Tb] 1 each PO BID 08/25/24 [History] Famotidine 40 mg PO DAILY 08/25/24 [History] Fluticasone Furoate [Arnuity Ellipta] 1 puff IH DAILY 08/25/24 [History] Fluticasone Propionate [Flonase Allergy Relief] 1 spray NS DAILY PRN PRN 08/25/24 [History] Ipratropium/Albuterol Sulfate [Iprat-Albut 0.5-3(2.5) mg/3 ml] 3 ml IH Q6HPRN PRN 08/25/24 [History] Levothyroxine Sodium 300 mcg PO DAILY 08/25/24 [History] Montelukast Sodium 10 mg [Singulair 10 MG] 10 mg PO DAILY 08/25/24 [History] Morphine Sulfate 15 mg PO Q4HPRN PRN 08/25/24 [History] Morphine Sulfate Cr 15 mg [Ms Contin 15 MG] 15 mg PO 1400 08/25/24 [History] Morphine Sulfate Cr 15 mg [Ms Contin 15 MG] 15 mg PO HS 08/25/24 [History] Morphine Sulfate Cr 15 mg [Ms Contin 15 MG] 30 mg PO 0600 08/25/24 [History] Naloxone HCl [Narcan] 4 mg NS DAILY PRN 08/25/24 [History] Nitroglycerin 0.4 mg Tablet [Nitrostat 0.4 MG Tablet] 0.4 mg SL Q5MIN PRN MR X 3 PRN 08/25/24 [History] Omeprazole 40 mg PO BID 08/25/24 [History] Polyethylene Glycol 3350 17 gm [Miralax Powder 17GM PACKET] 17 gm PO DAILY PRN 08/25/24 [History] Potassium Chloride 30 meq PO DAILY 08/25/24 [History] Prednisone 10 mg [Deltasone 10 mg] 10 mg PO DAILY 08/25/24 [History] Quetiapine Fumarate 25 mg [Seroquel 25 MG] 25 mg PO HS 08/25/24 [History] Roflumilast [Daliresp] 500 mcg PO DAILY 08/25/24 [History] Tiotropium [place] Inhaler [Spiriva 18 Mcg/Cap Inhaler] 1 puff IH DAILY 08/25/24 [History] Multivit-Min/Iron/Folic/Lutein [Centrum Silver Women Tablet] 1 each PO DAILY 09/18/24 [History] Hx Tetanus, Diphtheria Vaccination/Date Given: Yes Hx Influenza Vaccination/Date Given: Yes Hx Pneumococcal Vaccination/Date Given: Yes Immunizations Up to Date: Yes Travel Risk - International Travel Have you traveled outside of the country in past 3 weeks: No - Emerging Infectious Disease Are you exhibiting symptoms associated with any current EIDs: No Symptoms: Abdominal Pain, Vomitting - Review of Systems All Other Systems: Reviewed and Negative - Past Medical History Pertinent Past Medical History: Yes Neurological History: No Pertinent History ENT History: Cataracts Cardiac History: Coronary Artery Disease, High Cholesterol, Myocardial Infarction (CA) Respiratory History: COPD Endocrine Medical History: Hypothyroidism Musculoskeletal History: No Pertinent History, Other GI Medical History: Diverticulosis, GERD, Gallbladder Disease, Other History: Renal Disease Psycho-Social History: Bipolar, Depression Female Reproductive Disorders: No Pertinent History Other Medical History: saab esophagus, ckd stage 3, opioid dependence, small intestional bacterial overgrowth (SIBO), essential tremor, hypomagnesemia, gastroparesis, nodule of kidney, chronic intestinal pseudo-obstruction, chronic pain, end stage COPD - Past Surgical History Past Surgical History: Yes Neuro Surgical History: No Pertinent History Cardiac: Cardiac Catheterization Respiratory: No Pertinent History Gastrointestinal: Cholecystectomy Genitourinary: Kidney Surgery Musculoskeletal: Orthopedic Surgery Female Surgical History: Tubal Ligation Other Surgical History: carpal tunnel surgery on both wrist, left knee surgery, sinus surgery, kidney surgery-stents Significant Family History: heart disease, diabetes, hypertension, other (bipolar thyroid) - Social History Smoking Status: Former smoker Exposure to second hand smoke: No Drug Use: none - Social Determinants of Health Will the patient participate in the screening: Yes Do you worry about a steady place to live?: No Do you have any problems with any of the following?: No known problems In the past 12 months,have you had to go without utilities?: No Transportation Issues: No Has anyone in your support network made you feel unsafe?: No Have you or anyone in your house had to go w/o enough food: No - Nursing Vital Signs Nursing Vital Signs: Initial Vital Signs Temperature 97 F 03/31/25 21:46 Pulse Rate 98 H 03/31/25 21:46 Respiratory Rate 18 03/31/25 21:46 Blood Pressure 152/79 03/31/25 21:46 O2 Sat by Pulse Oximetry 100 03/31/25 21:46 Pain Scale Pain Intensity 0 - Physical Exam General Appearance: no apparent distress, alert Eye Exam: PERRL/EOMI, eyes nml inspection Ears, Nose, Throat Exam: normal ENT inspection, TMs normal, pharynx normal, moist mucous membranes Neck Exam: normal inspection, non-tender, supple, full range of motion Respiratory Exam: normal breath sounds, lungs clear, No respiratory distress Cardiovascular Exam: regular rate/rhythm, normal heart sounds, normal peripheral pulses Gastrointestinal/Abdomen Exam: soft, normal bowel sounds, No tenderness, No mass Back Exam: normal inspection, normal range of motion, No CVA tenderness, No vertebral tenderness Extremity Exam: normal inspection, normal range of motion, pelvis stable, swelling (1+ bilateral lower extremity pitting edema), other (Negative Homans' sign bilaterally), No myrna's sign Neurologic Exam: alert, oriented x 3, cooperative, normal mood/affect, sensation nml, No motor deficits Skin Exam: normal color, warm, dry, No rash Lymphatic Exam: No adenopathy SpO2 Interpretation: normal SpO2: 100 O2 Delivery: Room Air - Course Nursing assessment & vital signs reviewed: Yes EKG Interpreted by Me: RATE (78), Sinus Rhythm, LAFB, NORMAL INTERVALS, NORMAL QRS Ordered Tests: Active Orders 24 hr Category Date Time Status Head [employer] Operator STAT Care 03/31/25 22:26 Active EKG-ER Only STAT Care 03/31/25 22:26 Completed IV Insertion STAT Care 03/31/25 22:26 Active Pulse Oximetry (ED) STAT Care 03/31/25 22:26 Active CBC W DIFF Stat Lab 03/31/25 22:50 Completed CMP Stat Lab 03/31/25 22:50 Completed CULTURE,URINE Stat Lab 04/01/25 00:00 Received NT PRO BNPII Stat Lab 03/31/25 22:50 Completed TROPONIN Q4H Lab 03/31/25 22:50 Completed TROPONIN Q4H Lab 04/01/25 02:30 Ordered TROPONIN Q4H Lab 04/01/25 06:30 Ordered UA W/RFX UR CULTURE Stat Lab 04/01/25 00:00 Completed Lab/Rad Data: Laboratory Result Diagrams 03/31/25 22:50 03/31/25 22:50 Laboratory Results 04/01/25 03/31/2525 Range/Units 00:00 22:50 22:50 WBC (3.98-10.04) x10^3/uL RBC (3.93-5.22) x10^6/uL Hgb (11.2-15.7) g/dL Hct (34.1-44.9) % MCV (79.4-94.8) fL MCH (25.6-32.2) pg MCHC (32.2-35.5) g/dL RDW (11.7-14.4) % Plt Count (182-369) x10^3/uL MPV (9.4-12.3) fL Gran % (34.0-71.1) % Immature Gran % (Auto) (0.001-0.429) % Nucleat RBC Rel Count (0.00-0.2) % Eos # (Auto) (0.04-0.36) x10^3/uL Immature Gran # (Auto) (0.001-0.031) x10^3u/L Absolute Lymphs (auto) (1.18-3.74) x10^3/uL Absolute Monos (auto) (0.24-0.86) x10^3/uL Absolute Nucleated RBC (0.00-0.012) x10^3u/L Lymphocytes % (19.3-51.7) % Monocytes % (4.7-12.5) % Eosinophils % (0.7-5.8) % Basophils % (0.1-1.2) % Absolute Granulocytes (1.56-6.13) x10^3/uL Basophils # (0.01-0.08) x10^3/uL Sodium 136 (135-145) mmol/L Potassium 4.1 (3.5-5.1) mmol/L Chloride 106 (98-107) mmol/L Carbon Dioxide 20 L (22-30) mmol/L Anion Gap 14.0 (5-15) MEQ/L BUN 20 H (7-17) mg/dL Creatinine 1.28 H (0.52-1.04) mg/dL Estimated GFR 43.7 ML/MIN Glucose 130 H (74-106) mg/dL Calcium 8.3 L (8.4-10.2) mg/dL Total Bilirubin 0.30 (0.2-1.3) mg/dL AST 16 (14-36) U/L ALT 15 (0-35) U/L Alkaline Phosphatase 38 (38-126) U/L Troponin I < 0.012 (0.000-0.033) ng/mL NT-Pro-B Natriuret Pep 375 (<300) pg/mL Serum Total Protein 6.2 L (6.3-8.2) g/dL Albumin 3.9 (3.5-5.0) g/dL Urine Color Yellow (Yellow) Urine Appearance Clear (Clear) Urine pH 6.5 (4.6-8.0) Ur Specific Ideal 1.010 (1.005-1.030) Urine Protein Negative (Negative) Urine Glucose (UA) Negative (Negative) mg/dL Urine Ketones Negative (Negative) Urine Blood Negative (Negative) Urine Nitrite Negative (Negative) Urine Bilirubin Negative (Negative) Urine Urobilinogen 0.2 (0.2) mg/dL Ur Leukocyte Esterase Negative (Negative) U Hyaline Cast (Auto) NONE SEEN (0-2) /LPF Urine Microscopic RBC 0-2 (0-5) /HPF Urine Microscopic WBC 0-2 (0-5) /HPF Ur Epithelial Cells None Seen (None Seen) /HPF Urine Bacteria Moderate A (None Seen) /HPF Urine Culture Reflexed ORDERED SEPARATELY (NO) 03/31/25 Range/Units 22:50 WBC 7.4 (3.98-10.04) x10^3/uL RBC 3.83 L (3.93-5.22) x10^6/uL Hgb 10.9 L (11.2-15.7) g/dL Hct 34.8 (34.1-44.9) % MCV 90.9 (79.4-94.8) fL MCH 28.5 (25.6-32.2) pg MCHC 31.3 L (32.2-35.5) g/dL RDW 15.3 H (11.7-14.4) % Plt Count 197 (182-369) x10^3/uL MPV 9.1 L (9.4-12.3) fL Gran % 82.3 H (34.0-71.1) % Immature Gran % (Auto) 1.8 H (0.001-0.429) % Nucleat RBC Rel Count 0.0 (0.00-0.2) % Eos # (Auto) 0 L (0.04-0.36) x10^3/uL Immature Gran # (Auto) 0.13 H (0.001-0.031) x10^3u/L Absolute Lymphs (auto) 0.61 L (1.18-3.74) x10^3/uL Absolute Monos (auto) 0.55 (0.24-0.86) x10^3/uL Absolute Nucleated RBC 0.00 (0.00-0.012) x10^3u/L Lymphocytes % 8.3 L (19.3-51.7) % Monocytes % 7.5 (4.7-12.5) % Eosinophils % 0.0 L (0.7-5.8) % Basophils % 0.1 (0.1-1.2) % Absolute Granulocytes 6.07 (1.56-6.13) x10^3/uL Basophils # 0.01 (0.01-0.08) x10^3/uL Sodium (135-145) mmol/L Potassium (3.5-5.1) mmol/L Chloride (98-107) mmol/L Carbon Dioxide (22-30) mmol/L Anion Gap (5-15) MEQ/L BUN (7-17) mg/dL Creatinine (0.52-1.04) mg/dL Estimated GFR ML/MIN Glucose (74-106) mg/dL Calcium (8.4-10.2) mg/dL Total Bilirubin (0.2-1.3) mg/dL AST (14-36) U/L ALT (0-35) U/L Alkaline Phosphatase (38-126) U/L Troponin I (0.000-0.033) ng/mL NT-Pro-B Natriuret Pep (<300) pg/mL Serum Total Protein (6.3-8.2) g/dL Albumin (3.5-5.0) g/dL Urine Color (Yellow) Urine Appearance (Clear) Urine pH (4.6-8.0) Ur Specific Ideal (1.005-1.030) Urine Protein (Negative) Urine Glucose (UA) (Negative) mg/dL Urine Ketones (Negative) Urine Blood (Negative) Urine Nitrite (Negative) Urine Bilirubin (Negative) Urine Urobilinogen (0.2) mg/dL Ur Leukocyte Esterase (Negative) U Hyaline Cast (Auto) (0-2) /LPF Urine Microscopic RBC (0-5) /HPF Urine Microscopic WBC (0-5) /HPF Ur Epithelial Cells (None Seen) /HPF Urine Bacteria (None Seen) /HPF Urine Culture Reflexed (NO) - Progress Progress: improved Progress Note: Patient is a 75-year-old female history of hyperlipidemia coronary artery disease CA, COPD, hypothyroidism, renal disease, bipolar, depression presents to our ED via EMS for evaluation of bilateral lower extremity swelling. No history of CHF. No chest pain no shortness of breath. No diaphoresis. Physical exam shows 1+ pitting edema bilateral lower extremity. Both lower extremities are neurovasc intact distally compartments are soft cap refill less than 2 seconds. Negative Homans' sign bilaterally. Laboratory workup shows a slightly elevated serum creatinine. Otherwise no significant findings. BNP is 375. Patient reassessed. She feels well has no complaints vitals are stable. No indication for further workup of bilateral lower extremity swelling at this time. We will discharge patient home. Patient states she is ready for discharge. She voices no other complaints or concerns at this time. Portions of this note were created with voice recognition technology. There may be grammatical, spelling, punctuation or sound alike errors History obtained from patient and EMS. Differential diagnosis includes venous insufficiency, CHF, third spacing, bilateral DVT Complexity of problems addressed is moderate acute complicated. No critical care time. Complexity of data reviewed and analyzed is moderate. Test ordered test reviewed results analyzed and correlated clinically with history and physical exam. Risk of complication and or risk of morbidity/mortality of patient management is low. Vital stable. Time spent to discharge patient is approximately 15 minutes. Plan of care established for shared decision making. No social determinants of health present to impede follow-up. Portions of this note were created with voice recognition technology. There may be grammatical, spelling, punctuation or sound alike errors 04/01/25 01:03 Counseled pt/family regarding: diagnosis, need for follow-up, rad results - Departure Departure Disposition: Home Clinical Impression: Localized swelling of both lower legs Condition: Good Critical Care Time: No Referrals: DALIA,JEFFERY D [Primary Care Provider, PULMONARY MEDICINE] - Follow up/PCP as directed Instructions: Peripheral Edema -- Bilateral, Dependent Edema (DC), Lymphedema (DC) Additional Instructions: Discharge/Care Plan STOUTLETTY WATSON was seen on 04/01/25 in the Emergency Room. The patient was counseled regarding Diagnosis,Lab results, Imaging studies, need for follow up and when to return to the Emergency Room. Prescriptions given: Discharge Note I have spoken with the patient and/or caregivers. I have explained the patient's condition, diagnosis and treatment plan based on the information available to me at this time. I have answered the patient's and/or caregiver's questions and addressed any concerns. The patient and/or caregivers have as good understanding of the patient's diagnosis, condition and treatment plan as can be expected at this point. The vital signs have been stable. The patient's condition is stable and appropriate for discharge from the emergency department. The patient will pursue further outpatient evaluation with the primary care physician or other designated or consulting physician as outlined in the discharge instructions. The patient and/or caregivers are agreeable to this plan of care and follow-up instructions have been explained in detail. The patient and/or caregivers have received these instruction. The patient/and or caregivers are aware that any significant change in condition or worsening of symptoms should prompt an immediate return to this or the closest emergency department or call 911.
[2025-03-31 23:00] LABS: BASOPHIL % 0.1 % (0.1-1.2); Basophil (Absolute #) 0.01 x10^3/uL (0.01-0.08); Eosinophil (Absolute #) 0 x10^3/uL (0.04-0.36); Hematocrit 34.8 % (34.1-44.9); Hemoglobin 10.9 g/dL (11.2-15.7); IMMATURE GRAN # 0.13 x10^3u/L (0.001-0.031); IMMATURE GRAN % 1.8 % (0.001-0.429); Lymphocyte (Absolute #) 0.61 x10^3/uL (1.18-3.74); Mean Corpuscular Hemoglobin 28.5 pg (25.6-32.2); Mean Corpuscular Hgb Concent. 31.3 g/dL (32.2-35.5); Monocyte (Absolute #) 0.55 x10^3/uL (0.24-0.86); NUCLEATED RBC # 0.00 x10^3u/L (0.00-0.012); NUCLEATED RBC % 0.0 % (0.00-0.2); Platelet Count 197 x10^3/uL (182-369); Red Blood Count 3.83 x10^6/uL (3.93-5.22); White Blood Count 7.4 x10^3/uL (3.98-10.04)
[2025-03-31 23:13] LABS: Calcium 8.3 mg/dL (8.4-10.2); Carbon Dioxide 20.0 mmol/L (22-30); Creatinine 1 1.28 mg/dL (0.52-1.04); EST GLOMERULAR FILTRATION RATE 43.7 ML/MIN; Glucose 130.0 mg/dL (74-106); Potassium 4.1 mmol/L (3.5-5.1); SGOT/AST 16.0 U/L (14-36); SGPT/ALT 15.0 U/L (0-35); Total Protein 6.2 g/dL (6.3-8.2)
[2025-03-31 23:24] LABS: NT PRO BNPII 375 pg/mL (<300); TROPONIN < 0.012 ng/mL (0.000-0.033)
[2025-04-01 00:03] VITALS: PULSE 76
[2025-04-01 00:42] LABS: Glucose, Urine Negative (Negative); Protein,Urine Dip Negative (Negative); RBC 0-2 /HPF (0-5); WBC 0-2 /HPF (0-5)
[2025-04-01 01:01] VITALS: O2SAT 100
[2025-04-01 01:02] VITALS: BP 149/73; RESP 17
== END 2025-04-01 01:00 | disposition home or self-care (01) ==
LOC: ED 21:45
DX: M79.89 Other specified soft tissue disorders (principal); Z79.899 Other long term (current) drug therapy